=== PATIENT | male | born 1950 | race Hispanic/Latino ===

== ENCOUNTER 2018-12-03 23:11 | Emergency (ER) | payer OTHER ==
[~2018-12-03] VITALS: Ht 180.3 cm; Wt 124.7 kg
[~2018-12-03 23:11] MED LIST: ATENOLOL100 MG PO; BYSTOLIC10 MG PO; CRESTOR20 MG PO; EXFORGE 10-3201 EACH PO; EXFORGE 5-3201 EACH PO; LASIX20 MG PO; LISINOPRIL PO; METAMUCIL PACK1 EACH PO; PANTOPRAZOLE SO20 MG PO; PROTONIX IV40 MG PO; PROTONIX20 MG; ROSUVASTATIN PO; Vit D PO; [UNRECOGNIZED DRUG - OTHER] PO; [UNRECOGNIZED DRUG - OTHER] PO
--- OUTSIDE RECORDS SUMMARY | 2018-12-03 23:15 | XMS REPORT ---
Author Author Jose Gracia [facility] eClinicalWorks Address Unknown Phone Unavailable Care Team Providers Care Paper Wood Cutter Name Role Phone Jose Garcia Unavailable Encounters Encounter Location Date AFO question [facility] Jun 11, 2015 plan of care [facility] Jun 20, 2015 Unknown [facility] Aug 30, 2015 Problems Problem Type Condition ICD-9 Code Onset Dates Condition Status Problem Nerve Injury - Peroneal Nerve 956.3 Active Problem Nerve Injury - Posterior Tibial Nerve 956.2 Active Problem Radiculopathy 724.4 Active Problem Tarsal tunnel syndrome 355.5 Active Social History Social History Element Qualifiers Date Reported Do you smoke? . Answer: No Jun 06, 2015 Use of recreational / street drugs? . Answer: No Jun 06, 2015 Marital Status: . Jun 06, 2015 Do you exercise? . Answer: No Jun 06, 2015 Do you drink alcohol? . Status: Yes Jun 06, 2015 Occupation: . Employed control room setting job Jun 06, 2015 Summary Purpose eClinicalWorks Submission
--- OUTSIDE RECORDS SUMMARY | 2018-12-03 23:15 | XMS REPORT | Continuity of Care Document ---
Author Author [facility] Interface Address Unknown Phone Unavailable Problems Problem Status Onset Date Classification Date Reported Comments Source Nerve Injury - Peroneal Nerve Active Problem 08/31/2015 [facility] Nerve Injury - Posterior Tibial Nerve Active Problem 08/31/2015 [facility] Radiculopathy Active Problem 08/31/2015 [facility] Tarsal tunnel syndrome Active Problem 08/31/2015 [facility] Medications Medication Details Route Status Patient Instructions Ordering Provider Order Date Source Allergies, Adverse Reactions, Alerts Substance Category Reaction Severity Reaction type Status Date Reported Comments Source Immunizations Immunization Date Given Site Status Last Updated Comments Source Results Order Name Results Value Reference Range Date Interpretation Comments Source Vital Signs Vital Sign Value Date Comments Source Encounters Location Location Details Encounter Type Encounter Number Reason For Visit Attending Provider ADM Date DC Date Status Source [facility] AFO question [id number] 06/11/2015 06/11/2015 [facility] [id number] 06/11/2015 06/11/2015 [facility] question [id number] 06/11/2015 06/11/2015 [facility] care [id number] 06/20/2015 06/20/2015 [facility] care [id number] 06/20/2015 06/20/2015 [facility] Unknown [id number] 08/30/2015 08/30/2015 [facility] Procedures Procedure Code Date Perfomer Comments Source
--- OUTSIDE RECORDS SUMMARY | 2018-12-03 23:15 | XMS REPORT ---
Author Author Jose Garcia [facility] eClinicalWorks Address Unknown Phone Unavailable Care Team Providers Care Slitter Scorer Cut Off Operator Name Role Phone Jose Garcia Unavailable Encounters Encounter Location Date AFO question [facility] Jun 11, [address] [facility] Jun 20, 2015 Problems Problem Type Condition ICD-9 Code [...]
--- OUTSIDE RECORDS SUMMARY | 2018-12-03 23:15 | XMS REPORT ---
Author Author Jose Garcia [facility] eClinicalWorks Address Unknown Phone Unavailable Care Team Providers Care Workers Compensation Analyst Name Role Phone Jose Garcia Unavailable Encounters Encounter Location Date AFO question [facility] Jun 11, 2015 Problems Problem Type Condition ICD-9 Code [...]
== END 2018-12-04 00:20 | disposition home or self-care (01) ==
LOC: ER 23:11
DX: I10 Essential (primary) hypertension (principal)
CPT/HCPCS: 99283

== ENCOUNTER → 2019-01-14 | Day surgery (SDC) | payer OTHER ==
[2019-01-11 15:46] LABS: BASOPHILS % 0.4 % (0.0-1.0); EOSINOPHILS # (AUTO) 0.1 (0.0-0.4); EOSINOPHILS % 0.8 % (0.0-6.0); HEMATOCRIT 41.9 % (38.2-49.6); HEMOGLOBIN 14.4 g/dL (14.0-18.0); LYMPHOCYTES # (AUTO) 2.9 (1.0-3.2); LYMPHOCYTES % 40.4 % (18.0-39.1); MEAN CORPUSCULAR HEMOGLOBIN 29.6 pg (28-32); MEAN CORPUSCULAR HGB CONC 34.4 g/dL (31-35); MONOCYTES # (AUTO) 0.6 (0.2-0.8); MONOCYTES % 7.9 % (4.4-11.3); NEUTROPHILS # (AUTO) 3.6 (2.1-6.9); NEUTROPHILS % 50.1 % (38.7-80.0); PLATELET COUNT 176 x10e3/uL (140-360); RED BLOOD COUNT 4.87 x10e6/uL (4.3-5.7); RED CELL DISTRIBUTION WIDTH 13.4 % (11.7-14.4)
[~2019-01-14] MED LIST changes: +ASPIR 8181 MG PO; +ATENOLOL50 MG PO; +EXFORGE HCT 101 EAC1 PO; +FENTANYL CITRATE/PF 100MCG/2 ML INJ ONE; +GABAPENTIN300 MG PO; +GLIMEPIRIDE2 MG PO; +HYOSCYAMINE 0.125 MG TAB ONE; +IOPAMIDOL 300MG/ML 100 ML INFUS..BTL IV ONE; +METAMUCIL FIBE3.4 GM PO; +METFORMIN HCL500 MG PO; +MIDAZOLAM HCL 2 MG/2 ML VIAL ONE; +PANTOPRAZOLE SO40 MG PO; +PROPOFOL IV EMULSION 10 MG/ML 50 ML VIAL ONE; +SIMETHICONE 40 MG/0.6 ML BTL ONE
--- OUTSIDE RECORDS SUMMARY | 2019-01-14 05:50 | XMS REPORT | Continuity of Care Document ---
Author Author [facility] Interface Address Unknown Phone Unavailable Problems Problem Status Onset Date Classification Date Reported Comments Source Nerve Injury - Peroneal Nerve Active Problem 08/31/2015 [facility] Nerve Injury - Posterior Tibial Nerve Active Problem 08/31/2015 [facility] Radiculopathy Active Problem 08/31/2015 [facility] Tarsal tunnel syndrome Active Problem 08/31/2015 [facility] Medications Medication Details Route Status Patient Instructions Ordering Provider Order Date Source Amlodipine/Valsartan (Exforge 5-320 Mg Tablet) 1 Each Tablet, Mg Oral Daily Active 08/08/2014 [facility] Furosemide (Lasix) 20 Mg Tablet, 20 Mg Oral Twice A Day Active 08/08/2014 [facility] Nebivolol Hcl (Bystolic) 10 Mg Tablet, 10 Mg Oral Daily Active 08/08/2014 [facility] Pantoprazole Sodium 20 Mg Tablet.dr, 40 Mg Oral Daily Active 08/08/2014 [facility] Psyllium Seed (With Sugar) (Metamucil Packet) 1 Each Packet, 1 Each Oral Daily Active 08/08/2014 [facility] Rosuvastatin Calcium (Crestor) 20 Mg Tablet, 20 Mg Oral Daily Active 08/08/2014 [facility] Vit D , Oral Daily Active 08/08/2014 [facility] Atenolol 100 Mg Tablet, 100 Mg Oral Daily Active 07/03/2014 [facility] Lisinopril , 12.5 Mg Oral Daily Active 07/03/2014 [facility] Atenolol Qd , 100 Mg Oral Daily Active 06/26/2014 [facility] Crestor Qd , 20 Mg Oral Daily Active 06/26/2014 [facility] Lisinopril Qd , 12.5 Mg Oral Daily Active 06/26/2014 [facility] Amlodipine/Valsartan (Exforge 10-320 Mg Tablet) 1 Each Tablet Daily Active [facility] Furosemide (Lasix) 20 Mg Tablet Twice A Day Active [facility] Nebivolol Hcl (Bystolic) 10 Mg Tablet Daily Active [facility] Pantoprazole Sodium (Protonix Iv) 40 Mg Vial Q24h Active [facility] Rosuvastatin Calcium (Crestor) 20 Mg Tablet Daily Active [facility] Allergies, Adverse Reactions, Alerts Substance Category Reaction Severity Reaction type Status Date Reported Comments Source No Known Drug Allergies Mild Allergy to Substance Active 12/04/2018 [facility] Immunizations Immunization Date Given Site Status Last Updated Comments Source Results Order Name Results Value Reference Range Date Interpretation Comments Source Vital Signs Vital Sign Value Date Comments Source Encounters Location Location Details Encounter Type Encounter Number Reason For Visit Attending Provider ADM Date DC Date Status Source [facility] AFO question [id number] 06/11/2015 06/11/2015 [facility] AFO question [id number] 06/11/2015 06/11/2015 [facility] AFO question [id number] 06/11/2015 06/11/2015 [facility] [id number] 06/20/2015 06/20/2015 [facility] of care [id number] 06/20/2015 06/20/2015 [facility] Unknown [id number] 08/30/2015 08/30/2015 [facility] Departed Emergency Room [id number] FELIX NEWTON MD 12/03/2018 12/04/2018 [facility] Procedures Procedure Code Date Perfomer Comments Source
--- NOTE | 2019-01-14 07:15 | NUR ---
SPIRITUAL CARE - Pre-Surgery Assessment: Pt in bed. Pt's at bedside. Pt reported supportive attention from family and friends. Intervention: I provided pastoral presence, hospitality, and sympathetic listening. I acquainted pt with availability of rn charge while hospitalized. Outcome: Pt expressed appreciation for visit. No need for follow up indicated at this time. [facility]ual [facility] Department O: [phone] Pager: [phone] ([phone] number calling from)
[2019-01-14 09:10] VITALS: BP 127/72
--- NOTE | 2019-01-14 11:20 | Operative Report ---
DATE OF PROCEDURE: 01/14/2019 SURGEON: Jovanny Syed MD PROCEDURES: Esophagogastroduodenoscopy with polypectomy and biopsies and colonoscopy with polypectomy. INDICATIONS FOR EGD: Dyspepsia, father with CA of stomach. INDICATIONS FOR COLONOSCOPY: Surveillance colonoscopy. The patient is status post colon resection for colon mass. MEDICATIONS: The patient was done under MAC, please see anesthesiologist's note. PROCEDURE IN DETAIL: With the patient in left lateral decubitus position, a flexible fiberoptic Olympus gastroscope was introduced into the esophagus under direct visualization without any difficulty. There was some patchy erythema noted in distal esophagus. The scope was then advanced with ease into the stomach and a minute nodule was noted just below the cardia and that was biopsied. There were some prominent nodularity noted in the upper body and biopsies were obtained. An approximately 8 mm pedunculated polyp, distal body posterior wall was removed per snare electrocautery. The mucosa overlying the antrum and the body revealed some patchy areas of erythema and low-grade to moderate edema and biopsies were obtained and sent to stain for H pylori. The pylorus was of normal contour and shape, it was intubated with ease and the scope was advanced all the way to the second portion of the duodenum. The scope was then withdrawn slowly. Mucosa overlying the proximal second portion and duodenal bulb grossly appeared to be within normal limits. Biopsies were obtained and sent to rule out sprue. The scope was then withdrawn back into the stomach and retroflexed and mucosa overlying the fundus and cardia appeared to be within normal limits. The scope was then straightened out, it was subsequently withdrawn. The patient tolerated the procedure well. IMPRESSION: 1. Mild distal esophagitis. 2. Minute nodule just below cardia, biopsied. 3. Prominent nodularity upper body, biopsied. 4. Approximately 8 mm pedunculated polyp, distal body posterior wall removed per snare electrocautery. 5. Gastritis, biopsied. Biopsies sent to stain for Helicobacter pylori. 6. Rule out sprue. PLAN: Follow up histology. Initiate Protonix 40 mg one p.o. q.a.m. a.c. PROCEDURE IN DETAIL: The patient was then turned around after adequate lubrication of the anal canal, flexible fiberoptic Olympus colonoscope was inserted into the rectum with ease and advanced all the way to the ileocolic anastomosis. The anastomotic site appeared intact. No evidence of recurrence. The scope was then withdrawn slowly. Mucosa overlying the transverse colon appeared to be within normal limits. A minute polyp was hot biopsied from the descending colon. The sigmoid colon grossly appeared to be within normal limits. One polyp was hot biopsied from the rectum. The scope was then retroflexed into the distal rectum and small internal hemorrhoids were noted, none of which was actively bleeding. The scope was then straightened out, it was subsequently withdrawn. The patient tolerated the procedure well. IMPRESSION: 1. Ileocolic anastomosis intact. 2. Descending colon polyp, hot biopsied. 3. Rectal polyp, hot biopsied. 4. Internal hemorrhoids, none actively bleeding. PLAN: Follow up histology. Initiate high-fiber, low-fat diet. Initiate high-fiber supplement. The patient might benefit from a followup colonoscopy in 3 to 5 years. MD MARIA M Tang/GENTRY /[id number] cc: Cindy Barbosa DO
== END | disposition home or self-care (01) ==
LOC: OR 05:47
PROVIDERS: ATTEND Internal Medicine Gastroenterology
DX: K20.9 Esophagitis, unspecified (principal); D12.4 Benign neoplasm of descending colon; K62.1 Rectal polyp; K31.7 Polyp of stomach and duodenum; K29.70 Gastritis, unspecified, without bleeding; K31.89 Other diseases of stomach and duodenum; K64.8 Other hemorrhoids; Z98.0 Intestinal bypass and anastomosis status; I10 Essential (primary) hypertension; E11.9 Type 2 diabetes mellitus without complications; M54.9 Dorsalgia, unspecified; Z01.810 Encounter for preprocedural cardiovascular examination; Z01.812 Encounter for preprocedural laboratory examination; Z79.82 Long term (current) use of aspirin; Z79.84 Long term (current) use of oral hypoglycemic drugs; Z80.0 Family history of malignant neoplasm of digestive organs
CPT/HCPCS: 36415 ×2; 43239; 43251; 45384; 82948; 85025; 93005; J2250; J2704; Q9967; 45378

== ENCOUNTER 2021-11-18 13:34 | Emergency (ER) | payer MEDICARE, OTHER ==
[~2021-11-18] VITALS: Ht 177.8 cm; Wt 124.7 kg
[~2021-11-18 13:34] MED LIST changes: -FENTANYL CITRATE/PF 100MCG/2 ML INJ ONE; -HYOSCYAMINE 0.125 MG TAB ONE; -IOPAMIDOL 300MG/ML 100 ML INFUS..BTL IV ONE; -MIDAZOLAM HCL 2 MG/2 ML VIAL ONE; -PROPOFOL IV EMULSION 10 MG/ML 50 ML VIAL ONE; -SIMETHICONE 40 MG/0.6 ML BTL ONE
[2021-11-18] MEDS ORDERED: AMLODIPINE BESYL5 MG PO (14:48)
[2021-11-18 14:52] LABS: BASOPHILS % 0.4 % (0.0-1.0); EOSINOPHILS % 0.6 % (0.0-6.0); HEMATOCRIT 39.8 % (38.2-49.6); HEMOGLOBIN 13.1 g/dL (14.0-18.0); LYMPHOCYTES % 20.3 % (18.0-39.1); MEAN CORPUSCULAR HEMOGLOBIN 29.3 pg (28-32); MEAN CORPUSCULAR HGB CONC 32.9 g/dL (31-35); MONOCYTES # (AUTO) 0.3 (0.2-0.8); MONOCYTES % 7.2 % (4.4-11.3); NEUTROPHILS # (AUTO) 3.3 (2.1-6.9); NEUTROPHILS % 70.9 % (38.7-80.0); PLATELET COUNT 148 x10e3/uL (140-360); RED BLOOD COUNT 4.47 x10e6/uL (4.3-5.7); RED CELL DISTRIBUTION WIDTH 13.2 % (11.7-14.4)
[2021-11-18 15:04] LABS: ANION GAP 12.8 mmol/L (8-16); CALCIUM 9.1 mg/dL (8.4-10.2); CREATININE, SERUM 0.72 mg/dL (0.72-1.25); POTASSIUM 3.8 mmol/L (3.5-5.1)
== END 2021-11-18 15:35 | disposition home or self-care (01) ==
LOC: ER 14:06
DX: I10 Essential (primary) hypertension (principal); E11.65 Type 2 diabetes mellitus with hyperglycemia; E11.40 Type 2 diabetes mellitus with diabetic neuropathy, unspecified; E78.5 Hyperlipidemia, unspecified; K21.9 Gastro-esophageal reflux disease without esophagitis; E78.00 Pure hypercholesterolemia, unspecified; M54.9 Dorsalgia, unspecified; G89.29 Other chronic pain; Z87.19 Personal history of other diseases of the digestive system
CPT/HCPCS: 36415; 80048; 85025; 99283

== ENCOUNTER 2022-03-26 15:40 | Emergency (ER) | payer MEDICARE ==
[~2022-03-26] VITALS: Ht 177.8 cm; Wt 124.7 kg
[~2022-03-26 15:40] MED LIST changes: +AMLODIPINE BESYL5 MG PO
== END 2022-03-26 16:50 | disposition home or self-care (01) ==
LOC: ER 16:10
DX: I10 Essential (primary) hypertension (principal); E11.9 Type 2 diabetes mellitus without complications; K21.9 Gastro-esophageal reflux disease without esophagitis; E78.5 Hyperlipidemia, unspecified
CPT/HCPCS: 99283

== ENCOUNTER 2022-04-12 12:37 | Emergency (ER) | payer MEDICARE ==
[~2022-04-12] VITALS: Ht 177.8 cm; Wt 124.7 kg
[2022-04-12] MEDS ORDERED: LYRICA100 MG PO (13:04)
[2022-04-12] MEDS ORDERED: CLONIDINE HCL0.1 MG PO (13:04)
[2022-04-12 13:30] LABS: BASOPHILS % 0.1 % (0.0-1.0); EOSINOPHILS # (AUTO) 0.1 (0.0-0.4); EOSINOPHILS % 0.9 % (0.0-6.0); HEMATOCRIT 41.3 % (38.2-49.6); HEMOGLOBIN 13.9 g/dL (14.0-18.0); LYMPHOCYTES # (AUTO) 2.9 (1.0-3.2); LYMPHOCYTES % 43.2 % (18.0-39.1); MEAN CORPUSCULAR HGB CONC 33.7 g/dL (31-35); MEAN CORPUSCULAR VOLUME 89.2 fL (81-99); MONOCYTES # (AUTO) 0.6 (0.2-0.8); MONOCYTES % 8.4 % (4.4-11.3); NEUTROPHILS # (AUTO) 3.1 (2.1-6.9); PLATELET COUNT 189 x10e3/uL (140-360); RED BLOOD COUNT 4.63 x10e6/uL (4.3-5.7); RED CELL DISTRIBUTION WIDTH 13.1 % (11.7-14.4)
[2022-04-12] MEDS ORDERED: SODIUM CHLORIDE FLUSH 10 ML SYR IV PRN (13:30)
[2022-04-12 13:34] LABS: INR 0.96; PARTIAL THROMBOPLASTIN TIME 25.5 seconds (23.8-35.5); PROTHROMBIN TIME 13.7 seconds (11.9-14.5)
[2022-04-12 13:42] LABS: ALANINE AMINOTRANSFERASE 26 IU/L (0-55); ALBUMIN 4.1 g/dL (3.5-5.0); ALBUMIN/GLOBULIN RATIO 1.2 (0.8-2.0); ALKALINE PHOSPHATASE 86 IU/L (40-150); ANION GAP 16.2 mmol/L (8-16); BLOOD UREA NITROGEN 9 mg/dL (7-26); BUN/CREATININE RATIO 13 (6-25); CALCIUM 9.1 mg/dL (8.4-10.2); CARBON DIOXIDE 24 mmol/L (22-29); CHLORIDE 98 mmol/L (98-107); GLUCOSE 91 mg/dL (74-118); POTASSIUM 3.2 mmol/L (3.5-5.1); SODIUM 135 mmol/L (136-145)
[2022-04-12 14:22] LABS: CLARITY,URINE CLEAR (CLEAR); COLOR,URINE YELLOW (YELLOW); KETONES,URINE NEGATIVE (NEGATIVE); LEUKOCYTE ESTERASE ,URINE SMALL (NEGATIVE); NITRITE,URINE NEGATIVE (NEGATIVE); PROTEIN,URINE DIPSTICK NEGATIVE (NEGATIVE); URINE UROBILINOGEN 0.2 mg/dL (0.2 - 1)
[2022-04-12 14:40] LABS: WBC,URINE (MAN) 0-5 /HPF (0-5)
[2022-04-12] MEDS ORDERED: POTASSIUM CHLORIDE 20 MEQ TAB CR PO STA (15:25)
[2022-04-12] MEDS ORDERED: POTASSIUM CHLO20 ME1 PO (16:43)
[2022-04-12 16:57] VITALS: BP 129/61
== END 2022-04-12 17:05 | disposition home or self-care (01) ==
LOC: ER 12:51
DX: R42 Dizziness and giddiness (principal); U07.1 COVID-19; I10 Essential (primary) hypertension; E11.9 Type 2 diabetes mellitus without complications; E78.5 Hyperlipidemia, unspecified; K21.9 Gastro-esophageal reflux disease without esophagitis; E78.00 Pure hypercholesterolemia, unspecified; M54.9 Dorsalgia, unspecified; G89.29 Other chronic pain; Z98.0 Intestinal bypass and anastomosis status
CPT/HCPCS: 36415; 70450; 71045; 80053; 81001; 82948; 84484; 85025; 85610; 85730; 93005; 94760; 99284; U0002

== ENCOUNTER 2023-11-23 01:50 | Emergency (ER) | payer MEDICARE ==
[~2023-11-23] VITALS: Ht 177.8 cm; Wt 124.7 kg
[~2023-11-23 01:50] MED LIST changes: +CLONIDINE HCL0.1 MG PO; +LYRICA100 MG PO; +POTASSIUM CHLO20 ME1 PO
[2023-11-23 01:57] VITALS: O2SAT 100
== END 2023-11-23 02:25 | disposition home or self-care (01) ==
LOC: ER 01:54
DX: R09.89 Other specified symptoms and signs involving the circulatory and respiratory systems (principal); J32.9 Chronic sinusitis, unspecified; I10 Essential (primary) hypertension; E11.40 Type 2 diabetes mellitus with diabetic neuropathy, unspecified; E78.5 Hyperlipidemia, unspecified; E78.00 Pure hypercholesterolemia, unspecified; K21.9 Gastro-esophageal reflux disease without esophagitis
CPT/HCPCS: 99282

== ENCOUNTER 2024-07-14 13:47 | Observation (INO) | payer MEDICARE ==
[~2024-07-14] VITALS: Ht 177.8 cm; Wt 129.3 kg
[2024-07-14 13:47] VITALS: TEMP 98.1
[2024-07-14 14:14] VITALS: PULSE 72; RESP 17
[2024-07-14 14:14] LABS: BASOPHILS % 0.4 % (0.0-1.0); EOSINOPHILS % 0.5 % (0.0-6.0); HEMATOCRIT 40.4 % (38.2-49.6); HEMOGLOBIN 13.6 g/dL (14.0-18.0); LYMPHOCYTES # (AUTO) 0.9 (1.0-3.2); LYMPHOCYTES % 15.9 % (18.0-39.1); MEAN CORPUSCULAR HGB CONC 33.7 g/dL (31-35); MONOCYTES # (AUTO) 0.4 (0.2-0.8); MONOCYTES % 7.4 % (4.4-11.3); NEUTROPHILS # (AUTO) 4.2 (2.1-6.9); NEUTROPHILS % 75.4 % (38.7-80.0); PLATELET COUNT 155 x10e3/uL (140-360); RED BLOOD COUNT 4.54 x10e6/uL (4.3-5.7); RED CELL DISTRIBUTION WIDTH 13.3 % (11.7-14.4); WHITE BLOOD COUNT 5.53 x10e3/uL (4.8-10.8)
[2024-07-14] MEDS: SODIUM CHLORIDE 0.9% 1000ML 1,000 ML IV STA (14:16)
[2024-07-14 14:24] LABS: INR 1.05; PROTHROMBIN TIME 14.2 seconds (11.9-14.5)
[2024-07-14 14:25] LABS: PARTIAL THROMBOPLASTIN TIME 26.4 seconds (23.8-35.5)
[2024-07-14] MEDS ORDERED: OMEPRAZOLE40 MG PO (14:28)
[2024-07-14] MEDS ORDERED: NIFEDIPINE ER30 M1 PO (14:28)
[2024-07-14] MEDS ORDERED: DIOVAN HCT 3201 EACH PO (14:28)
[2024-07-14 14:34] LABS: ALBUMIN 4.3 g/dL (3.5-5.0); ALBUMIN/GLOBULIN RATIO 1.5 (0.8-2.0); ANION GAP 15.3 mmol/L (8-16); BILIRUBIN,TOTAL 0.6 mg/dL (0.2-1.2); CALCIUM 9.3 mg/dL (8.4-10.2); CREATININE, SERUM 0.84 mg/dL (0.72-1.25); MAGNESIUM 1.9 MG/DL (1.3-2.1); POTASSIUM 3.3 mmol/L (3.5-5.1); TOTAL PROTEIN 7.2 g/dL (6.5-8.1)
[2024-07-14 14:40] LABS: TROPONIN I 0.009 ng/mL (0-0.300)
[2024-07-14 16:18] VITALS: BP 155/74; PULSE 66; RESP 20; TEMP 98.3; O2SAT 98
[2024-07-14 16:30] VITALS: BP 155/74; PULSE 65; RESP 20; TEMP 98.3; O2SAT 98
[2024-07-14 20:00] VITALS: BP 133/76; PULSE 55; RESP 18; TEMP 98.7; O2SAT 100
[2024-07-14] MEDS ORDERED: DEXTROSE 50% SYRINGE 50 ML IV PRN (20:00)
[2024-07-14] MEDS ORDERED: AMLODIPINE BESY10 MG PO (20:13)
[2024-07-14 21:00] VITALS: BP 133/76; PULSE 55; RESP 18; TEMP 98.7; O2SAT 100
[2024-07-14] MEDS: INSULIN REGULAR, HUMAN 100 UNIT/1 ML SQ SCH (21:00)
[2024-07-14] MEDS: PREGABALIN 50 MG CAP PO SCH (21:29)
[2024-07-15] VITALS: BP 138/63; PULSE 56; RESP 20; TEMP 97.8; O2SAT 99
[2024-07-15 04:00] VITALS: BP 134/72; PULSE 55; RESP 20; TEMP 97.6; O2SAT 99
[2024-07-15 06:46] LABS: BASOPHILS % 0.4 % (0.0-1.0); EOSINOPHILS # (AUTO) 0.1 (0.0-0.4); HEMATOCRIT 39.8 % (38.2-49.6); HEMOGLOBIN 13.4 g/dL (14.0-18.0); LYMPHOCYTES # (AUTO) 1.4 (1.0-3.2); LYMPHOCYTES % 28.3 % (18.0-39.1); MEAN CORPUSCULAR HEMOGLOBIN 30.2 pg (28-32); MEAN CORPUSCULAR HGB CONC 33.7 g/dL (31-35); MEAN CORPUSCULAR VOLUME 89.6 fL (81-99); MONOCYTES # (AUTO) 0.4 (0.2-0.8); MONOCYTES % 7.8 % (4.4-11.3); NEUTROPHILS % 62.3 % (38.7-80.0); PLATELET COUNT 162 x10e3/uL (140-360); RED BLOOD COUNT 4.44 x10e6/uL (4.3-5.7); RED CELL DISTRIBUTION WIDTH 13.4 % (11.7-14.4); WHITE BLOOD COUNT 4.87 x10e3/uL (4.8-10.8)
[2024-07-15 07:14] LABS: ALBUMIN 3.9 g/dL (3.5-5.0); ALBUMIN/GLOBULIN RATIO 1.3 (0.8-2.0); ANION GAP 12.6 mmol/L (8-16); BILIRUBIN,TOTAL 0.8 mg/dL (0.2-1.2); CALCIUM 9.1 mg/dL (8.4-10.2); CHOL/HDL RATIO 4.2 (3.9-4.7); CREATININE, SERUM 0.74 mg/dL (0.72-1.25); POTASSIUM 3.6 mmol/L (3.5-5.1); TOTAL PROTEIN 6.8 g/dL (6.5-8.1)
[2024-07-15 08:27] VITALS: BP 149/77; PULSE 54; RESP 18; TEMP 97.5; O2SAT 100
[2024-07-15 08:52] LABS: TROPONIN I 0.017 ng/mL (0-0.300)
[2024-07-15 09:10] VITALS: BP 149/77; PULSE 54; RESP 18; TEMP 97.5; O2SAT 100
[2024-07-15] MEDS: CRESTOR 10MG PO SCH (09:22)
[2024-07-15] MEDS: AMLODIPINE BESYLATE 5 MG TAB PO SCH (09:23)
[2024-07-15] MEDS: PANTOPRAZOLE SOD 40 MG TABEC PO SCH (09:23)
[2024-07-15] MEDS: VALSARTAN 160 MG TAB PO SCH (09:23)
[2024-07-15] MEDS: ASPIRIN 81 MG CHEW TAB PO SCH (09:23)
[2024-07-15 12:40] VITALS: BP 132/68; PULSE 52; RESP 17; TEMP 97.6; O2SAT 99
== END 2024-07-15 14:20 | disposition home or self-care (01) ==
LOC: ER 13:56 → ERHOLD 15:18 → MED/SURG3 16:18
PROVIDERS: ADMIT Internal Medicine Critical Care Medicine; ATTEND Internal Medicine Critical Care Medicine
DX: R00.0 Tachycardia, unspecified (principal); T46.1X5A Adverse effect of calcium-channel blockers, initial encounter; R00.1 Bradycardia, unspecified; T44.7X5A Adverse effect of beta-adrenoreceptor antagonists, initial encounter; I16.0 Hypertensive urgency; E11.40 Type 2 diabetes mellitus with diabetic neuropathy, unspecified; G62.9 Polyneuropathy, unspecified; K21.9 Gastro-esophageal reflux disease without esophagitis; E78.5 Hyperlipidemia, unspecified; M54.9 Dorsalgia, unspecified; E66.01 Morbid (severe) obesity due to excess calories; Z68.41 Body mass index [BMI] 40.0-44.9, adult; Z79.84 Long term (current) use of oral hypoglycemic drugs; Z79.82 Long term (current) use of aspirin; Z79.899 Other long term (current) drug therapy
CPT/HCPCS: 36415 ×2; 71045; 80053 ×2; 80061; 82550; 82948 ×2; 83735; 84443; 84484 ×2; 85025 ×2; 85610; 85730; 93005; 99284; G0378 ×2; J7030; S0164